=== PATIENT | female | born 1975 | race African-American/Black ===

== ENCOUNTER 2016-06-04 11:19 | Emergency (ER) | payer SELFPAY ==
--- NOTE | 2016-06-04 11:32 | ER Document Report ---
ED Medical Screen (RME) - General Stated Complaint: POSSIBLE HEART RATE PROBLEM Time seen by provider: 11:31 Information source: Patient TRAVEL OUTSIDE OF THE U[place]. IN LAST 30 DAYS: No - HPI Patient complains to provider of: HEART PALPITATIONS Onset: Other - 5 DAYS Onset/Duration: Intermittent Context: FEELS HEART FLUTTERING Quality of pain: Other - FLUTTERING Severity: Mild Pain Level: 1 Associated Symptoms: Shortness of breath. denies: Cough (productive), Cough ( nonproductive), Fever Exacerbated by: Denies Relieved by: Denies Similar symptoms previously: No Recently seen / treated by doctor: No - Related Data Smoking: Cigarettes Frequency of alcohol use: Occasional Drug Abuse: None Pertinent History: ANXIETY HTN DM RELIEVED BY GASTRIC BYPASS Past Medical History - Immunizations Hx Diphtheria, Pertussis, Tetanus Vaccination: Yes Physical Exam - Vital signs Vitals: Temp Pulse Resp BP Pulse Ox 97.7 F 81 18 158/96 H 99 06/04/16 11:24 06/04/16 11:24 06/04/16 11:24 06/04/16 11:24 06/04/16 11:24 Course - Vital Signs Vital signs: Temp Pulse Resp BP Pulse Ox 97.7 F 81 18 158/96 H 99 06/04/16 11:24 06/04/16 11:24 06/04/16 11:24 06/04/16 11:24 06/04/16 11:24
[2016-06-04] MEDS ORDERED: ASPIRIN 81 MG TABLET, CHEWABLE PO ONE (11:38)
[2016-06-04 12:33] LABS: ABSOLUTE EOSINOPHILS # (AUTO) 0.1 10^3/uL (0.0-0.6); ABSOLUTE LYMPHOCYTES (AUTO) 1.9 10^3/uL (0.5-4.7); ABSOLUTE MONOCYTES (AUTO) 0.4 10^3/uL (0.1-1.4); ABSOLUTE NEUT (AUTO) 4.2 10^3/uL (1.7-8.2); BASOPHILS % (AUTO) 0.3 % (0-2); EOSINOPHILS % (AUTO) 0.9 % (0-6); HEMATOCRIT 33.8 % (36.0-47.0); HGB HCT DIFFERENCE -0.8; LYMPHOCYTES % (AUTO) 28.9 % (13-45); MEAN CORPUSCULAR HEMOGLOBIN 25.8 pg (27.0-33.4); MEAN CORPUSCULAR HGB CONC 32.7 g/dL (32.0-36.0); MEAN CORPUSCULAR VOLUME 79 fl (80-97); MONOCYTES % (AUTO) 6.4 % (3-13); RED BLOOD COUNT 4.28 10^6/uL (3.72-5.28); RED CELL DISTRIBUTION WIDTH 18.1 % (11.5-14.0); SEGMENTED NEUTROPHILS % (AUTO) 63.5 % (42-78); WHITE BLOOD COUNT 6.6 10^3/uL (4.0-10.5)
[2016-06-04 12:56] LABS: ALANINE AMINOTRANSFERASE 32 U/L (9-52); ALBUMIN 3.9 g/dL (3.5-5.0); ALKALINE PHOSPHATASE 122 U/L (38-126); ANION GAP 12 (5-19); ASPARTATE AMINO TRANSFERASE 24 U/L (14-36); BILIRUBIN,TOTAL 0.8 mg/dL (0.2-1.3); BLOOD UREA NITROGEN 8 mg/dL (7-20); CALCIUM 9.3 mg/dL (8.4-10.2); CARBON DIOXIDE 23 mmol/L (22-30); CHLORIDE 105 mmol/L (98-107); CREATINE KINASE 34 U/L (30-135); CREATININE RESULT 0.77 mg/dL (0.52-1.25); GLUCOSE 122 mg/dL (75-110); SODIUM 139.8 mmol/L (137-145); TOTAL PROTEIN 7.5 g/dL (6.3-8.2)
[2016-06-04 13:07] LABS: APPEARANCE,URINE CLEAR; BILIRUBIN,URINE NEGATIVE (NEGATIVE); GLUCOSE, URINE NEGATIVE (NEGATIVE); KETONES,URINE NEGATIVE (NEGATIVE); LEUKOCYTE ESTERASE,URINE NEGATIVE (NEGATIVE); NITRITE,URINE NEGATIVE (NEGATIVE); PROTEIN,URINE NEGATIVE (NEGATIVE); URINE SPECIFIC GRAVITY 1.013; UROBILINOGEN,URINE NEGATIVE mg/dL (<2.0)
[2016-06-04 13:19] LABS: CREATINE KINASE MB < 0.22 ng/mL (<4.55); TROPONIN I < 0.012 ng/mL
[2016-06-04 13:27] LABS: URINE BARBITURATES SCREEN NEGATIVE; URINE METHADONE SCREEN NEGATIVE; URINE OPIATES LOW NEGATIVE; URINE PHENCYCLIDINE SCREEN NEGATIVE
[2016-06-04 13:33] LABS: LIPASE 75.9 U/L (23-300); MAGNESIUM 1.8 mg/dL (1.6-2.3)
--- NOTE | 2016-06-04 14:08 | ER Document Report ---
ED General - General Chief Complaint: Palpitations Stated Complaint: POSSIBLE HEART RATE PROBLEM TRAVEL OUTSIDE OF THE [place]. IN LAST 30 DAYS: No - HPI Patient complains to provider of: palpitations Notes: Patient coming in for palpitations ongoing for the last 4 days. Patient denies any other past medical history. Patient denies any recent travel denies smoking drinking and drug abuse. Patient also denies any energy drinks denies any [id number] vitamins. Patient states is been constant for the last 4 days. - Related Data Allergies/Adverse Reactions: No Known Allergies Allergy (Verified 06/04/16 11:40) Past Medical History - General Information source: Patient - Social History Smoking Status: Current Every Day Smoker Chew tobacco use (# tins/day): Yes Frequency of alcohol use: Occasional Drug Abuse: None Family History: Reviewed & Not Pertinent Patient has suicidal ideation: No Patient has homicidal ideation: No - Past Medical History Cardiac Medical History: Reports: Hx Hypertension Renal/ Medical History: Denies: Hx Peritoneal Dialysis - Immunizations Hx Diphtheria, Pertussis, Tetanus Vaccination: Yes Review of Systems - Review of Systems Constitutional: No symptoms reported EENT: No symptoms reported Cardiovascular: Palpitations Respiratory: No symptoms reported Gastrointestinal: No symptoms reported Genitourinary: No symptoms reported Female Genitourinary: No symptoms reported Musculoskeletal: No symptoms reported Skin: No symptoms reported Hematologic/Lymphatic: No symptoms reported Neurological/Psychological: No symptoms reported -: Yes All other systems reviewed and negative Physical Exam - Vital signs Vitals: Temp Pulse Resp BP Pulse Ox 97.7 F 81 18 158/96 H 99 06/04/16 11:24 06/04/16 11:24 06/04/16 11:24 06/04/16 11:24 06/04/16 11:24 Interpretation: Normal - General General appearance: Appears well, Alert - HEENT Head: Normocephalic, Atraumatic Eyes: Normal Pupils: PERRL - Respiratory Respiratory status: No respiratory distress Chest status: Nontender Breath sounds: Normal Chest palpation: Normal - Cardiovascular Rhythm: Regular Heart sounds: Normal auscultation Murmur: No - Abdominal Inspection: Normal Distension: No distension Bowel sounds: Normal Tenderness: Nontender Organomegaly: No organomegaly - Back Back: Normal, Nontender - Extremities General upper extremity: Normal inspection, Nontender, Normal color, Normal ROM , Normal temperature General lower extremity: Normal inspection, Nontender, Normal color, Normal ROM , Normal temperature, Normal weight bearing. No: Sarah's sign - Neurological Neuro grossly intact: Yes Cognition: Normal Orientation: AAOx4 [place] Coma Scale Eye Opening: Spontaneous [place] Coma Scale Verbal: Oriented [place] Coma Scale Motor: Obeys Commands [place] Coma Scale Total: 15 Speech: Normal Motor strength normal: LUE, RUE, LLE, RLE Sensory: Normal - Psychological Associated symptoms: Normal affect, Normal mood - Skin Skin Temperature: Warm Skin Moisture: Dry Skin Color: Normal Course - Re-evaluation Re-evalutation: 06/04/16 14:06 Patient's lab work findings not show any clear etiology for the patient's symptoms. Patient's monitor strip does show intermittent PVCs. At this time patient will be discharged home to follow-up with PCP. The patient has atypical chest pain as the patient's chest pain is not suggestive of pulmonary embolus, cardiac ischemia, aortic dissection, or other serious etiology. Given the extremely low risk of these diagnoses further testing and evaluation for these possibilities does not appear to be indicated at this time. The patient has been instructed to return if the symptoms worsen or change in any way. - Vital Signs Vital signs: Temp Pulse Resp BP Pulse Ox 97.7 F 81 15 127/101 H 99 06/04/16 11:24 06/04/16 11:24 06/04/16 13:01 06/04/16 13:01 06/04/16 13:01 - Laboratory Result Diagrams: 06/04/16 12:13 06/04/16 12:13 Laboratory results interpreted by me: 06/04/16 06/04/16 12:13 12:13 Hgb 11.0 L Hct 33.8 L MCV 79 L MCH 25.8 L RDW 18.1 H Glucose 122 H Discharge - Discharge Clinical Impression: Palpitations Condition: Good Disposition: HOME, SELF-CARE Instructions: Palpitations (Irregular or Rapid Heartrate) (OM), PVCs (OM) Additional Instructions: At this time your monitor strips shows signs of PVCs or skipped heartbeats. These are not deadly. Your labwork shows no critical findings. I would recommend following up with your primary care physician for further evaluation. Please avoid all stimulants including caffeine coffee soda Referrals: GEM ROBBINS MD [Primary Care Provider] - Follow up in 1 week
[2016-06-04 14:18] VITALS: BP 130/101
--- NOTE | 2016-06-05 09:22 | EKG REPORT ---
SEVERITY:- NORMAL ECG - SINUS RHYTHM : Confirmed by: Jose Rafael Tuttle 05-Jun-2016 09:20:51
== END 2016-06-04 14:23 | disposition home or self-care (01) ==
LOC: ER 11:19
DX: R00.2 Palpitations (principal); I49.3 Ventricular premature depolarization; R07.89 Other chest pain; F17.200 Nicotine dependence, unspecified, uncomplicated; I10 Essential (primary) hypertension
CPT/HCPCS: 36415; 71010; 80053; 80307; 81001; 82550; 82553; 83690; 83735; 84484; 84703; 85025; 93005; 93010; 99285

== ENCOUNTER → 2017-05-13 | Outpatient (CLI) | payer MEDICAID ==
--- NOTE | 2017-05-13 17:49 | RADIOLOGY REPORT (SQ) ---
EXAM DESCRIPTION: CTA CHEST COMPLETED DATE/TIME: 05/13/2017 5:32 pm REASON FOR STUDY: SHORTNESS OF BREATH R06.02 SHORTNESS OF BREATH COMPARISON: None. TECHNIQUE: CT scan of the chest performed using helical scanning technique with dynamic intravenous contrast injection. Images reviewed with lung, soft tissue and bone windows. Reconstructed coronal and sagittal MPR images reviewed. Additional 3 dimensional post-processing performed to develop Maximal Intensity Projection images (AZ P). All images stored on PACS. All CT scanners at this facility use dose modulation, iterative reconstruction, and/or weight based d osing when appropriate to reduce radiation dose to as low as reasonably achievable (ALARA). [facility]: Dose Right [facility]: CareDose [facility]: Dose Right [facility]: Teradose 4D [facility]: Giftology CONTRAST TYPE AND DOSE: contrast/concentration: Isovue 370.00 mg/ml; Total Contrast Delivered: 80.0 ml; Total Saline Delivered: 90.0 ml Contrast bolus adequate for pulmonary arteries and aorta. RENAL FUNCTION: None required. The patient is less than 50 years old. RADIATION DOSE: CT Rad equipment meets quality standard of care and radiation dose reduction techniq ues were employed. CTDIvol: 19.8 - 27.0 mGy. DLP: 967 mGy-cm. . LIMITATIONS: None. FINDINGS: LUNGS AND PLEURA: Multifocal ground-glass airspace disease involving the right upper lobe and bilateral lower lobes with interlobular septal thickening noted in the right lower lobe. No larg e consolidation. No mass. No pleural effusion or pneumothorax. AORTA AND GREAT VESSELS: No aneurysm. Contrast bolus not optimized for the aorta. HEART: No pericardial effusion. No significant coronary artery calcifications. PULMONARY ARTERIES: No emboli visualized in the main pulmonary arteries or the segmental branches. HILAR AND MEDIASTINAL STRUCTURES: No identified masses or abnormal nodes. HARDWARE: None in the chest. UPPER ABDOMEN: Diffuse hepatic steatosis. Status post cholecystectomy. No acute findings. THYROID AND OTHER SOFT TISSUES: No masses. No adenopathy. BONES: No acute or significant finding. 3D MIPS: Confirm above findings. OTHER: No other significant finding. IMPRESSION: NO PULMONARY EMBOLI. MULTIFOCAL GROUND-GLASS AIRSPACE DISEASE MOST NOTABLY INVOLVING THE RIGHT LOWER LOBE WITH THERE IS IN TERLOBULAR SEPTAL THICKENING. THIS PRESUMABLY REPRESENTS INFECTIOUS OR INFLAMMATORY PNEUMONITIS. CO RRELATE WITH FEVER/ ELEVATED WHITE BLOOD CELL COUNT AND CONSIDER FOLLOW-UP CT IN 3 TO 6 MONTHS TO ENS URE RESOLUTION. HEPATIC STEATOSIS. COMMENT: Quality ID # [id number]: Final reports with documentation of one or more dose reduction techniques (e.g., Automated exposure control, adjustment of the mA and/or kV according to patient size, use of iterative reconstruction technique) TECHNICAL DOCUMENTATION: JOB ID: [id number] [employer]- All Rights Reserved
== END ==
LOC: RAD 16:43
PROVIDERS: ATTEND Internal Medicine
DX: R06.02 Shortness of breath (principal)
CPT/HCPCS: 71275; 82565

== ENCOUNTER → 2017-11-26 | Outpatient (CLI) | payer MEDICAID ==
--- NOTE | 2017-11-26 12:19 | RADIOLOGY REPORT (SQ) ---
EXAM DESCRIPTION: KNEE LEFT 2 VIEWS COMPLETED DATE/TIME: 11/26/2017 11:50 am REASON FOR STUDY: PAIN IN LEFT KNEE M25.562 PAIN IN LEFT KNEE COMPARISON: None. NUMBER OF VIEWS: Two views TECHNIQUE: AP and lateral radiographic images acquired of the left knee. LIMITATIONS: None. FINDINGS: MINERALIZATION: Normal. BONES: No acute fracture or dislocation. No worrisome bone lesions. JOINT: There is some soft tissue fullness at the level of the suprapatellar pouch which I cannot excl ude is a joint effusion. SOFT TISSUES: No soft tissue swelling. No radio-opaque foreign body. OTHER: No other significant finding. IMPRESSION: NO RADIOGRAPHIC EVIDENCE OF ACUTE INJURY. Soft tissue fullness is identified at the le yash of the suprapatellar pouch which I cannot exclude is a joint effusion. Other findings as noted kong tracy TECHNICAL DOCUMENTATION: JOB ID: [id number] [employer]- All Rights Reserved Reading location - IP/workstation name: [email or web address]
== END ==
LOC: OD 11:31
PROVIDERS: ATTEND Internal Medicine
DX: M25.562 Pain in left knee (principal)

== ENCOUNTER 2018-04-22 22:59 | Emergency (ER) | payer MEDICAID ==
--- NOTE | 2018-04-23 00:10 | ER Document Report ---
ED General - General Chief Complaint: Chest Congestion Stated Complaint: CHEST PAIN Time Seen by Provider: 04/22/18 23:41 Mode of Arrival: Ambulatory Information source: Patient Notes: This is a 43-year-old female with a history of of hypertension, pneumonia who presents to the emergency room with chest wall pain and some epigastric pain for the past few days. Patient denies any significant shortness of breath. Patient denies any fever. Patient states she has had similar symptoms in the past when it is turned out to be pneumonia. She denies any vaginal bleeding. She denies any vomiting. TRAVEL OUTSIDE OF THE U.S. IN LAST 30 DAYS: No - HPI Onset: Last week Onset/Duration: Gradual Quality of pain: Burning, Dull Severity: Mild Pain Level: 1 Associated symptoms: Chest pain. denies: Fever, Shortness of breath Exacerbated by: Denies Relieved by: Denies Similar symptoms previously: No Recently seen / treated by doctor: No - Related Data Allergies/Adverse Reactions: No Known Allergies Allergy (Verified 06/04/16 11:40) Past Medical History - General Information source: Patient - Social History Smoking Status: Former Smoker Cigarette use (# per day): No Chew tobacco use (# tins/day): No Frequency of alcohol use: Social Drug Abuse: None Lives with: Family Family History: Reviewed & Not Pertinent Patient has suicidal ideation: No Patient has homicidal ideation: No - Past Medical History Cardiac Medical History: Reports: Hx Hypertension Endocrine Medical History: Reports: Hx Diabetes Mellitus Type 2 Renal/ Medical History: Denies: Hx Peritoneal Dialysis Past Surgical History: Reports: Hx Section - 3 , Hx Cholecystectomy - Immunizations Hx Diphtheria, Pertussis, Tetanus Vaccination: Yes Review of Systems - Review of Systems Constitutional: denies: Chills, Fever EENT: No symptoms reported Cardiovascular: denies: Chest pain - Patient's pain is more in the epigastrium, Palpitations, Heart racing Respiratory: No symptoms reported Gastrointestinal: See HPI Genitourinary: No symptoms reported Female Genitourinary: No symptoms reported Musculoskeletal: No symptoms reported Skin: No symptoms reported Hematologic/Lymphatic: No symptoms reported Neurological/Psychological: No symptoms reported Physical Exam - Vital signs Vitals: Temp Pulse Resp BP Pulse Ox 98.9 F 87 19 140/87 H 99 04/22/18 23:07 04/22/18 23:07 04/22/18 23:07 04/22/18 23:07 04/22/18 23:07 Notes: Physical exam: GENERAL: Patient is alert and oriented x3, no acute distress HEAD: Atraumatic, normocephalic. EYES: Pupils equal round and reactive to light, extraocular movements intact, sclera anicteric, conjunctiva are normal. ENT: TMs normal, nares patent, oropharynx clear without exudates. Moist mucous membranes. NECK: Normal range of motion, supple without obvious mass or JVD. LUNGS: Breath sounds clear to auscultation bilaterally and equal. No wheezes rales or rhonchi. HEART: Regular rate and rhythm without murmurs, rubs or gallops. ABDOMEN: Soft, normoactive bowel sounds. Tenderness in the epigastrium, No guarding, no rebound. No masses appreciated. EXTREMITIES: Normal range of motion, no pitting or edema. No clubbing or cyano sis. NEUROLOGICAL: Cranial nerves II through XII grossly intact. Normal speech, moving all extremities. PSYCH: Normal mood, normal affect. SKIN: Warm, Dry, normal turgor, no rashes or lesions noted. Course - Re-evaluation Re-evalutation: 04/23/18 01:21 Note: As far as patient's pulmonary status: Her oxygen saturation is 100% on room air. Her lungs are clear. Her respiratory rate is 16 and she is in no respiratory distress at all. The chest x-ray is clear. As far as her abdominal exam: She does have mild tenderness over the epigastrium. Abdomen is otherwise benign. She has had her gallbladder taken out. Labs do show a pancreatitis. Patient does states she has been drinking fairly regularly and increased her intake since her father a month ago. I have discussed the labs with her and she is ready to stop drinking altogether. I will have her follow-up with her primary care doctor when she is back in town (she is planning on seeing family this weekend in [place]). Additionally, I will put her on a H2 bulmaro since some of her symptoms appear to be reflux in nature. Will address the potassium as well. - Vital Signs Vital signs: Temp Pulse Resp BP Pulse Ox 98.9 F 87 19 140/87 H 99 04/22/18 23:07 04/22/18 23:07 04/22/18 23:07 04/22/18 23:07 04/22/18 23:07 - Laboratory Result Diagrams: 04/23/18 00:20 04/23/18 00:20 Laboratory results interpreted by me: 04/23/18 04/23/18 00:20 00:20 RBC 3.50 L Hgb 11.6 L Hct 34.5 L MCV 98 H RDW 18.1 H Potassium 3.2 L BUN 3 L Glucose 150 H Alkaline Phosphatase 129 H Albumin 3.1 L Lipase 842.8 H - Diagnostic Test Radiology reviewed: Image reviewed, Reports reviewed - X-ray shows no infiltrates - EKG Interpretation by Me Rate: Normal Rhythm: NSR - EKG shows normal sinus rhythm with a ventricular rate of 82, no acute ST-T wave changes compared to EKG May 2016. QTC 463 Discharge - Discharge Clinical Impression: Pancreatitis Condition: Stable Disposition: HOME, SELF-CARE Additional Instructions: As we discussed, your x-ray shows no pneumonia. Your oxygen level was very good. Labs do show some inflammation of the pancreas. Its important that you avoid alcohol altogether. Additionally, I am going to put you on a medicine for your stomach reflux. Also, your potassium was a little low. You were given some potassium in the emergency room. I would like you to increase intake with foods with potassium: Gann squash, Baked potato Spinach Lentils Kidney beans Watermelon Raisins Yogurt [place] juice Banana Low-fat milk Broccoli Otherwise continue all your other medicines. Aloe up with Dr. Robbins when back in town Return to the emergency room for worsening pain concerns or getting worse. Prescriptions: Omeprazole Magnesium [Prilosec Otc] 20 mg PO DAILY #30 tablet. Referrals: GEM ROBBINS MD [Primary Care Provider] - Follow up as needed
[2018-04-23 00:34] LABS: ABSOLUTE EOSINOPHILS # (AUTO) 0.2 10^3/uL (0.0-0.6); ABSOLUTE LYMPHOCYTES (AUTO) 1.9 10^3/uL (0.5-4.7); ABSOLUTE MONOCYTES (AUTO) 0.5 10^3/uL (0.1-1.4); ABSOLUTE NEUT (AUTO) 4.8 10^3/uL (1.7-8.2); BASOPHILS % (AUTO) 0.2 % (0-2); EOSINOPHILS % (AUTO) 3.3 % (0-6); HEMATOCRIT 34.5 % (36.0-47.0); HEMOGLOBIN 11.6 g/dL (12.0-15.5); LYMPHOCYTES % (AUTO) 25.2 % (13-45); MEAN CORPUSCULAR HEMOGLOBIN 33.2 pg (27.0-33.4); MEAN CORPUSCULAR HGB CONC 33.8 g/dL (32.0-36.0); MEAN CORPUSCULAR VOLUME 98 fl (80-97); MONOCYTES % (AUTO) 6.5 % (3-13); PLATELET COUNT 188 10^3/uL (150-450); RED CELL DISTRIBUTION WIDTH 18.1 % (11.5-14.0); SEGMENTED NEUTROPHILS % (AUTO) 64.8 % (42-78); TOTAL CELLS COUNTED % (AUTO) 100 %; WHITE BLOOD COUNT 7.4 10^3/uL (4.0-10.5)
[2018-04-23 00:51] LABS: ALANINE AMINOTRANSFERASE 22 U/L (9-52); ALBUMIN 3.1 g/dL (3.5-5.0); ALKALINE PHOSPHATASE 129 U/L (38-126); ANION GAP 6 (5-19); ASPARTATE AMINO TRANSFERASE 29 U/L (14-36); BILIRUBIN,DIRECT 0.2 mg/dL (0.0-0.4); BILIRUBIN,TOTAL 0.5 mg/dL (0.2-1.3); BLOOD UREA NITROGEN 3 mg/dL (7-20); CALCIUM 8.6 mg/dL (8.4-10.2); CARBON DIOXIDE 28 mmol/L (22-30); CHLORIDE 104 mmol/L (98-107); GLUCOSE 150 mg/dL (75-110); LIPASE 842.8 U/L (23-300); POTASSIUM 3.2 mmol/L (3.6-5.0); SODIUM 137.9 mmol/L (137-145); TOTAL PROTEIN 7.1 g/dL (6.3-8.2)
--- NOTE | 2018-04-23 01:03 | RADIOLOGY REPORT (SQ) ---
EXAM DESCRIPTION: XR CHEST 2 VIEWS COMPLETED DATE/TME: 04/23/2018 00:09 CLINICAL HISTORY: 43 years, Female, cp COMPARISON: None. NUMBER OF VIEWS: TECHNIQUE: LIMITATIONS: None. FINDINGS: No evidence of pulmonary infiltrate or pleural effusion. The heart and mediastinum are unremarkable. Pulmonary vascularity appears normal. IMPRESSION: No acute finding. copyright 2010 [employer]- All Rights Reserved
[2018-04-23] MEDS ORDERED: POTASSIUM CHLORIDE 10 MEQ CAPSULE.ER PO ONE (01:32)
[2018-04-23] MEDS ORDERED: FAMOTIDINE 20 MG TABLET PO ONE (01:32)
[2018-04-23 01:39] VITALS: BP 124/86
--- NOTE | 2018-04-23 07:42 | EKG REPORT ---
SEVERITY:- NORMAL ECG - SINUS RHYTHM : Confirmed by: Saran Barton MD 23-Apr-2018 07:41:47
== END 2018-04-23 01:54 | disposition home or self-care (01) ==
LOC: ER 22:59
DX: K85.90 Acute pancreatitis without necrosis or infection, unspecified (principal); R10.13 Epigastric pain; R10.816 Epigastric abdominal tenderness; R07.89 Other chest pain; R00.2 Palpitations; I10 Essential (primary) hypertension; E11.9 Type 2 diabetes mellitus without complications; Z87.01 Personal history of pneumonia (recurrent); Z87.891 Personal history of nicotine dependence; Z90.49 Acquired absence of other specified parts of digestive tract
CPT/HCPCS: 93005; 99284; 36415; 83690; 85025; 80053; 84484; 71046; 93010; J3490

== ENCOUNTER 2019-06-21 16:52 | Emergency (ER) | payer MEDICAID ==
--- NOTE | 2019-06-21 18:04 | ER Document Report ---
ED Medical Screen (RME) - General Chief Complaint: Vaginal Discharge Stated Complaint: VAGINAL DISCHARGE,ABDOMINAL PAIN Time Seen by Provider: 06/21/19 17:58 Primary Care Provider: GEM ROBBINS MD [Primary Care Provider] - Follow up as needed Mode of Arrival: Ambulatory Information source: Patient Notes: pt presents with c/o vaginal dc, yellow itchy with light odor. Recently treated for trich. Denies sexually active this year. (2020). Denies fever, vomiting, diarrhea, denies pain with void. denies abdominal pain. I have greeted and performed a rapid initial assessment of this patient. A comprehensive ED assessment and evaluation of the patient, analysis of test results and completion of the medical decision making process will be conducted by additional ED providers. TRAVEL OUTSIDE OF THE [place].S. IN LAST 30 DAYS: No - Related Data Allergies/Adverse Reactions: No Known Allergies Allergy (Verified 06/21/19 18:26) Past Medical History - Past Medical History Cardiac Medical History: Reports: Hx Hypertension Endocrine Medical History: Reports: Hx Diabetes Mellitus Type 2 Renal/ Medical History: Denies: Hx Peritoneal Dialysis Past Surgical History: Reports: Hx Section - 3 , Hx Cholecystectomy - Immunizations Hx Diphtheria, Pertussis, Tetanus Vaccination: Yes Course - Laboratory Laboratory results interpreted by me: 06/21/19 16:16 Urine Glucose (UA) >=500 H Urine Blood MODERATE H Ur Leukocyte Esterase MODERATE H Doctor's Discharge - Discharge Referrals: GEM ROBBINS MD [Primary Care Provider] - Follow up as needed
[2019-06-21 18:34] LABS: APPEARANCE,URINE CLEAR; BILIRUBIN,URINE NEGATIVE (NEGATIVE); COLOR,URINE YELLOW; GLUCOSE, URINE >=500 mg/dL (NEGATIVE); KETONES,URINE NEGATIVE (NEGATIVE); LEUKOCYTE ESTERASE,URINE MODERATE (NEGATIVE); NITRITE,URINE NEGATIVE (NEGATIVE); PROTEIN,URINE NEGATIVE (NEGATIVE); URINE SPECIFIC GRAVITY 1.016; UROBILINOGEN,URINE NEGATIVE mg/dL (<2.0)
[2019-06-21] MEDS ORDERED: CEFTRIAXONE INJ 250 MG VIAL IM ONE (18:51)
[2019-06-21] MEDS ORDERED: AZITHROMYCIN 1 GM SUSP PACKET PO ONE (18:51)
--- NOTE | 2019-06-21 18:53 | ER Document Report ---
ED General - General Chief Complaint: Vaginal Discharge Stated Complaint: VAGINAL DISCHARGE,ABDOMINAL PAIN Time Seen by Provider: 06/21/19 17:58 Primary Care Provider: GEM ROBBINS MD [Primary Care Provider] - Follow up as needed Mode of Arrival: Ambulatory Notes: Patient is a 44-year-old -English female with a past medical history of diabetes and hypertension who was recently diagnosed with trichomonas by her primary care provider who presents to the emergency department today with a chief complaint of ongoing vaginal discharge. She states that she was told she had trichomonas in May. She states that she was prescribed a medication but she did not like taking it so she stopped. She states her vaginal discharge has gradually worsened. She states she is concerned so she came for evaluation. She states the swabs they did at her primary doctor's office were otherwise negative with the exception of trichomonas. She denies any new sexual contacts since that time. She states the area is very irritated and itches. She denies any pelvic pain or abdominal pain. No fever, nausea, vomiting, diarrhea, chills, night sweats or urinary complaints. TRAVEL OUTSIDE OF THE [place] IN LAST 30 DAYS: No - Related Data Allergies/Adverse Reactions: No Known Allergies Allergy (Verified 06/21/19 18:26) Past Medical History - General Information source: Patient - Social History Smoking Status: Former Smoker Chew tobacco use (# tins/day): No Frequency of alcohol use: None Drug Abuse: None Family History: Reviewed & Not Pertinent Patient has suicidal ideation: No Patient has homicidal ideation: No - Past Medical History Cardiac Medical History: Reports: Hx Hypertension Endocrine Medical History: Reports: Hx Diabetes Mellitus Type 2 Renal/ Medical History: Denies: Hx Peritoneal Dialysis Past Surgical History: Reports: Hx Section - 3 , Hx Cholecystectomy - Immunizations Hx Diphtheria, Pertussis, Tetanus Vaccination: Yes Review of Systems - Review of Systems Female Genitourinary: Vaginal discharge -: Yes All other systems reviewed and negative Physical Exam - General General appearance: Appears well, Alert In distress: None - Respiratory Respiratory status: No respiratory distress Chest status: Nontender Breath sounds: Normal Chest palpation: Normal - Cardiovascular Rhythm: Regular Heart sounds: Normal auscultation - Abdominal Inspection: Normal Distension: No distension Bowel sounds: Normal Tenderness: Nontender Organomegaly: No organomegaly - Genitourinary External exam: Normal Speculum exam: Vaginal discharge - Green discharge in the posterior vaginal vault Vaginal bleeding: None - Back Back: No: CVA tenderness - Neurological Neuro grossly intact: Yes Cognition: Normal Orientation: AAOx4 [place] Coma Scale Eye Opening: Spontaneous [place] Coma Scale Verbal: Oriented [place] Coma Scale Motor: Obeys Commands [place] Coma Scale Total: 15 Speech: Normal - Psychological Associated symptoms: Normal affect, Normal mood - Skin Skin Temperature: Warm Skin Moisture: Dry Skin Color: Normal Course - Re-evaluation Re-evalutation: 06/21/19 20:50 GC negative. Trichomonas positive. Also bacteria present. Will treat for BV/trichomoniasis. She does not want tablet so we will try MetroGel. She will remain abstinent as planned. 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 I counseled her at length regarding the importance of outpatient follow-up and advised that she return here or any ER immediately with any new, persistent or worsening symptoms. She verbalized understood and agreed. - Laboratory Laboratory results interpreted by me: 06/21/19 16:16 Urine Glucose (UA) >=500 H Urine Blood MODERATE H Ur Leukocyte Esterase MODERATE H Discharge - Discharge Clinical Impression: Trichomonal infection, Bacterial vaginosis Condition: Stable Disposition: HOME, SELF-CARE Instructions: Trichomonas Infection ([facility]) Additional Instructions: Follow-up with your regular doctor in 2 to 3 days for reevaluation. Return here or any ER immediately with any new, persistent or worsening symptoms. Prescriptions: Metronidazole [Metrogel-Vaginal] 70 gm VG QHS #5 gel.w.[email or web address] Referrals: GEM ROBBINS MD [Primary Care Provider] - Follow up as needed
[2019-06-21 19:57] LABS: BACTERIA (WET MOUNT) 4+ BACTERIA SEEN; EPITHELIALS (WET MOUNT) 3+ EPITHELIALS SEEN; T.VAGINALIS (WET MOUNT) TRICHOMONAS SEEN; YEAST (WET MOUNT) NO YEAST SEEN
[2019-06-21 19:58] LABS: WBCS (WET MOUNT) 4+ WBCS SEEN
[2019-06-21 20:15] LABS: CHLAM PCR NOT DETECTED (NOT DETECT)
[2019-06-21] MEDS ORDERED: METRONIDAZOLE 500 MG TABLET PO ONE (20:53)
[2019-06-21 21:06] VITALS: BP 141/94
== END 2019-06-21 21:07 | disposition home or self-care (01) ==
LOC: ER 16:52
DX: A59.00 Urogenital trichomoniasis, unspecified (principal); N76.0 Acute vaginitis; B96.89 Other specified bacterial agents as the cause of diseases classified elsewhere; E11.9 Type 2 diabetes mellitus without complications; I10 Essential (primary) hypertension; Z87.891 Personal history of nicotine dependence
CPT/HCPCS: 87210; 81025; 81001; 87491; 87591; Q0144; J3490; J0696; 96372; 99283

== ENCOUNTER → 2019-11-19 | Outpatient (CLI) | payer MEDICAID ==
--- NOTE | 2019-11-19 10:55 | WOMENS IMAGING REPORT ---
EXAM DESCRIPTION: U/S ABDOMEN LIMITED IMAGES COMPLETED DATE/TIME: 11/19/2019 10:03 am REASON FOR STUDY: R94.5 ABNORMAL RESULTS OF LIVER FUNCTION STUDIES R94.5 ABNORMAL RESULTS OF LIVER FUNCTION STUDIES COMPARISON: None. TECHNIQUE: Dynamic and static grayscale images acquired of the abdomen and recorded on PACS. Additio nal selected color Doppler and spectral images recorded. LIMITATIONS: None. FINDINGS: PANCREAS: Visualized portions the pancreas are normal in appearance. LIVER: There is hepatic steatosis. No focal masses. Normal size. LIVER VASCULATURE: Normal directional flow of the main portal vein and hepatic veins. GALLBLADDER: Prior cholecystectomy. ULTRASOUND-DETECTED CLINTON'S SIGN: Not applicable. INTRAHEPATIC DUCTS AND COMMON DUCT: CBD and intrahepatic ducts normal caliber. No filling defects. INFERIOR VENA CAVA: Normal flow. AORTA: No aneurysm. RIGHT KIDNEY: Normal size. Normal echogenicity. No solid or suspicious masses. No hydronephrosis. No calcifications. PERITONEAL AND RIGHT PLEURAL SPACE: No ascites or effusions. OTHER: No other significant findings. IMPRESSION: Prior cholecystectomy. Hepatic steatosis. TECHNICAL DOCUMENTATION: JOB ID: [id number] [employer]- All Rights Reserved Reading location - IP/workstation name: [email or web address]
== END ==
LOC: WI 09:17
PROVIDERS: ATTEND Internal Medicine Gastroenterology
DX: K76.0 Fatty (change of) liver, not elsewhere classified (principal); R94.5 Abnormal results of liver function studies
CPT/HCPCS: 76705